=== PATIENT | female | born 1990 | race Caucasian/White ===

== ENCOUNTER 2017-12-06 12:37 | Emergency (ER) | payer OTHER ==
--- NOTE | 2017-12-06 13:13 | ER Document Report ---
ED Medical Screen (RME) - General Chief Complaint: GI Bleeding Stated Complaint: RECTAL BLEEDING Time Seen by Provider: 12/06/17 13:09 Notes: 27-year-old female patient sent to emergency [facility] from [facility] for possible GI bleed. Patient reports 4 day history of coffee-ground to the dark stool. She did take Pepto-Bismol 2 days ago for nausea, but reports the dark stool started 2 days prior to taking the Pepto-Bismol. I have greeted and performed a rapid initial assessment of this patient. A comprehensive ED assessment and evaluation of the patient, analysis of test results and completion of the medical decision making process will be conducted by additional ED providers. TRAVEL OUTSIDE OF THE [place] IN LAST 30 DAYS: No - Related Data Allergies/Adverse Reactions: Penicillins Allergy (Unknown, Verified 12/06/17 12:37) unknown Home Medications: Current Home Medications No Home Medications 12/06/17 [History] Past Medical History - Social History Chew tobacco use (# tins/day): No Frequency of alcohol use: Occasional Drug Abuse: None Renal/ Medical History: Denies: Hx Peritoneal Dialysis - Immunizations Hx Diphtheria, Pertussis, Tetanus Vaccination: Yes - unknown Physical Exam - Vital signs Vitals: Temp Pulse Resp BP Pulse Ox 97.5 F 72 16 108/75 100 12/06/17 12:42 12/06/17 12:42 12/06/17 12:42 12/06/17 12:42 12/06/17 12:42 Course - Vital Signs Vital signs: Temp Pulse Resp BP Pulse Ox 97.5 F 72 16 108/75 100 12/06/17 12:42 12/06/17 12:42 12/06/17 12:42 12/06/17 12:42 12/06/17 12:42
[2017-12-06 13:54] LABS: ABSOLUTE LYMPHOCYTES (AUTO) 1.6 10^3/uL (0.5-4.7); ABSOLUTE MONOCYTES (AUTO) 0.4 10^3/uL (0.1-1.4); BASOPHILS % (AUTO) 0.5 % (0-2); EOSINOPHILS % (AUTO) 1.4 % (0-6); HEMATOCRIT 40.6 % (36.0-47.0); HEMOGLOBIN 13.9 g/dL (12.0-15.5); LYMPHOCYTES % (AUTO) 52.2 % (13-45); MEAN CORPUSCULAR HEMOGLOBIN 32.9 pg (27.0-33.4); MEAN CORPUSCULAR HGB CONC 34.3 g/dL (32.0-36.0); MEAN CORPUSCULAR VOLUME 96 fl (80-97); MONOCYTES % (AUTO) 11.9 % (3-13); PLATELET COUNT 176 10^3/uL (150-450); RED BLOOD COUNT 4.23 10^6/uL (3.72-5.28); RED CELL DISTRIBUTION WIDTH 13.4 % (11.5-14.0); TOTAL CELLS COUNTED % (AUTO) 100 %; WHITE BLOOD COUNT 3.1 10^3/uL (4.0-10.5)
[2017-12-06 13:56] LABS: APPEARANCE,URINE SLIGHTLY-CLOUDY; BILIRUBIN,URINE NEGATIVE (NEGATIVE); COLOR,URINE YELLOW; GLUCOSE, URINE NEGATIVE (NEGATIVE); KETONES,URINE 80 mg/dL (NEGATIVE); LEUKOCYTE ESTERASE,URINE NEGATIVE (NEGATIVE); NITRITE,URINE NEGATIVE (NEGATIVE); PROTEIN,URINE NEGATIVE (NEGATIVE); URINE SPECIFIC GRAVITY 1.024; UROBILINOGEN,URINE NEGATIVE mg/dL (<2.0)
[2017-12-06 13:57] LABS: INTERNATIONAL RATION (INR) 0.89; PROTHROMBIN TIME 12.7 SEC (11.4-15.4)
[2017-12-06 14:14] LABS: ALANINE AMINOTRANSFERASE 38 U/L (9-52); ALBUMIN 4.4 g/dL (3.5-5.0); ALKALINE PHOSPHATASE 33 U/L (38-126); ANION GAP 11 (5-19); ASPARTATE AMINO TRANSFERASE 43 U/L (14-36); BILIRUBIN,DIRECT 0.1 mg/dL (0.0-0.4); BILIRUBIN,TOTAL 0.2 mg/dL (0.2-1.3); BLOOD UREA NITROGEN 13 mg/dL (7-20); CALCIUM 9.4 mg/dL (8.4-10.2); CARBON DIOXIDE 28 mmol/L (22-30); CHLORIDE 107 mmol/L (98-107); GLUCOSE 88 mg/dL (75-110); POTASSIUM 3.9 mmol/L (3.6-5.0); SODIUM 145.8 mmol/L (137-145)
--- NOTE | 2017-12-06 14:41 | ER Document Report ---
ED General - General Chief Complaint: GI Bleeding Stated Complaint: RECTAL BLEEDING Time Seen by Provider: 12/06/17 13:09 Mode of Arrival: Ambulatory Information source: Patient Notes: 27-year-old female presents with one-week duration of dark stools black with bright streaks. Patient denies any fevers or chills admits to nausea epigastric abdominal pain. Patient was seen at urgent care center for evaluation. Patient denies any previous similar episodes denies any rectal pain TRAVEL OUTSIDE OF THE [place] IN LAST 30 DAYS: No - HPI Onset: Last week Onset/Duration: Persistent Quality of pain: Burning Severity: Mild Pain Level: 1 Associated symptoms: Nausea Exacerbated by: Denies Relieved by: Denies Similar symptoms previously: Yes Recently seen / treated by doctor: Yes - Related Data Allergies/Adverse Reactions: Penicillins Allergy (Unknown, Verified 12/06/17 12:37) unknown Past Medical History - Social History Smoking Status: Never Smoker Cigarette use (# per day): No Chew tobacco use (# tins/day): No Smoking Education Provided: No Frequency of alcohol use: Occasional Drug Abuse: None Family History: Reviewed & Not Pertinent Patient has suicidal ideation: No Patient has homicidal ideation: No Renal/ Medical History: Denies: Hx Peritoneal Dialysis - Immunizations Hx Diphtheria, Pertussis, Tetanus Vaccination: Yes - unknown Review of Systems - Review of Systems Notes: REVIEW OF SYSTEMS: CONSTITUTIONAL : Denies fever, chills, or sweats. Denies recent illness. EENT: Denies eye, ear, throat, or mouth pain or symptoms. Denies nasal or sinus congestion or discharge. Denies throat, tongue, or mouth swelling or difficulty swallowing. CARDIOVASCULAR: Denies chest pain. Denies palpitations or racing or irregular heart beat. Denies ankle edema. RESPIRATORY: Denies cough, cold, or chest congestion. Denies shortness of breath, difficulty breathing, or wheezing. GASTROINTESTINAL: Admits epigastric pain nausea GENITOURINARY: Denies difficulty urinating, painful urination, burning, frequency, blood in urine, or discharge. FEMALE GENITOURINARY: Denies vaginal bleeding, heavy or abnormal periods, irregular periods. Denies vaginal discharge or odor. MUSCULOSKELETAL: Denies back or neck pain or stiffness. Denies joint pain or swelling. SKIN: Denies rash, lesions or sores. HEMATOLOGIC : Denies easy bruising or bleeding. LYMPHATIC: Denies swollen, enlarged glands. NEUROLOGICAL: Denies confusion or altered mental status. Denies passing out or loss of consciousness. Denies dizziness or lightheadedness. Denies headache. Denies weakness or paralysis or loss of use of either side. Denies problems with gait or speech. Denies sensory loss, numbness, or tingling. Denies seizures. PSYCHIATRIC: Denies anxiety or stress. Denies depression, suicidal ideation, or homicidal ideation. ALL OTHER SYSTEMS REVIEWED AND NEGATIVE. PHYSICAL EXAMINATION: GENERAL: Well-appearing, well-nourished and in no acute distress. HEAD: Atraumatic, normocephalic. EYES: Pupils equal round and reactive to light, extraocular movements intact, conjunctiva are normal. ENT: Nares patent, oropharynx clear without exudates. Moist mucous membranes. NECK: Normal range of motion, supple without lymphadenopathy LUNGS: Breath sounds clear to auscultation bilaterally and equal. No wheezes rales or rhonchi. HEART: Regular rate and rhythm without murmurs ABDOMEN: Soft, nontender, nondistended abdomen. No guarding, no rebound. No masses appreciated. Female : Rectal examination was performed with nurse in the room Hemoccult was negative black stool was noted Musculoskeletal: Normal range of motion, no pitting or edema. No cyanosis. NEUROLOGICAL: Cranial nerves grossly intact. Normal speech, normal gait. Normal sensory, motor exams PSYCH: Normal mood, normal affect. SKIN: Warm, Dry, normal turgor, no rashes or lesions noted. Dictation was performed using [employer] voice recognition software Physical Exam - Vital signs Vitals: Temp Pulse Resp BP Pulse Ox 97.5 F 72 16 108/75 100 12/06/17 12:42 12/06/17 12:42 12/06/17 12:42 12/06/17 12:42 12/06/17 12:42 Course - Re-evaluation Re-evalutation: 12/06/17 15:52 Patient's presentation was initially concerning for a GI bleed however her stool was Hemoccult negative, I believe her symptoms are secondary to her taking Pepto-Bismol. Patient was given GI cocktail and Juan notes her symptoms are completely resolved. I will discharge home with follow-up with GI Patient has had no vomiting episodes with blood After performing a Medical Screening Examination, I estimate there is LOW risk for ACUTE APPENDICITIS, BOWEL OBSTRUCTION, ACUTE CHOLECYSTITIS, PERFORATED DIVERTICULITIS, INCARCERATED HERNIA, PANCREATITIS, PELVIC INFLAMMATORY DISEASE, PERFORATED ULCER, ECTOPIC , or TUBO-OVARIAN ABSCESS, thus I consider the discharge disposition reasonable. Also, there is no evidence or peritonitis , sepsis, or toxicity. I have reevaluated this patient multiple times and no significant life threatening changes are noted. The patient and I have discussed the diagnosis and risks, and we agree with discharging home with close follow-up with the understanding that symptoms and presentations can change. We also discussed returning to the Emergency Department immediately if new or worsening symptoms occur. We have discussed the symptoms which are most concerning (e.g., bloody stool, fever, changing or worsening pain, vomiting) that necessitate immediate return. - Vital Signs Vital signs: Temp Pulse Resp BP Pulse Ox 97.5 F 72 16 108/75 100 12/06/17 12:42 12/06/17 12:42 12/06/17 12:42 12/06/17 12:42 12/06/17 12:42 - Laboratory Result Diagrams: 12/06/17 13:20 12/06/17 13:20 Laboratory results interpreted by me: 12/06/17 12/06/17 12/06/17 13:13 13:20 13:20 WBC 3.1 L Seg Neutrophils % 34.0 L Lymphocytes % 52.2 H Absolute Neutrophils 1.0 L Sodium 145.8 H AST 43 H Alkaline Phosphatase 33 L Urine Ketones 80 H Urine Blood SMALL H Discharge - Discharge Clinical Impression: Nausea, Epigastric pain Condition: Stable Disposition: HOME, SELF-CARE Instructions: Gastritis ([facility]) Prescriptions: Famotidine [Pepcid 20 mg Tablet] 20 mg PO DAILY #30 tablet Ondansetron [Zofran Odt 4 mg Tablet] 1 - 2 tab PO Q4H PRN #15 tab.rapdis PRN Reason: For Nausea/Vomiting Referrals: LITO GARCÍA MD [ACTIVE STAFF] - Follow up in 1 week
[2017-12-06] MEDS ORDERED: METOCLOPRAMIDE HCL ORAL SOLN 10 MG/10 ML UDCUP PO ONE (14:46)
[2017-12-06] MEDS ORDERED: ONDANSETRON 4 MG TAB.RAPDIS PO ONE (14:46)
[2017-12-06] MEDS ORDERED: LIDOCAINE 2% VISCOUS SOLN 20 ML UDCUP PO ONE (14:46)
[2017-12-06] MEDS ORDERED: MAG HYDROX/AL HYDROX/SIMETH SUSP 30 ML UDCUP PO ONE (14:46)
[2017-12-06 16:15] VITALS: BP 102/68
== END 2017-12-06 16:15 | disposition home or self-care (01) ==
LOC: ER 12:37
DX: R11.0 Nausea (principal); R10.13 Epigastric pain; K92.2 Gastrointestinal hemorrhage, unspecified
CPT/HCPCS: 99284; 86900; 86901; 36415; 86850; 84703; 85025; 85610; 82272; 80053; 81001; S0119; J3490